=== PATIENT | female | born 1970 | race Caucasian/White ===

== ENCOUNTER 2016-10-24 17:00 | Emergency (ER) | payer OTHER ==
[~2016-10-24] VITALS: Ht 152.4 cm; Wt 68.1 kg
[2016-10-24] MEDS ORDERED: ULTRAM50 MG PO (18:25)
[2016-10-24 18:34] VITALS: BP 170/72
== END 2016-10-24 18:33 | disposition home or self-care (01) ==
LOC: EME 17:00
DX: S83.91XA Sprain of unspecified site of right knee, initial encounter (principal); X50.1XXA Overexertion from prolonged static or awkward postures, initial encounter; Y99.0 Civilian activity done for income or pay
CPT/HCPCS: 73564; 99281; 99283